=== PATIENT | female | born 1985 | race Two or more races ===

== ENCOUNTER 2024-12-13 00:56 | Emergency (ER) | payer BC, SELFPAY ==
[2024-12-13 01:04] VITALS: BP 114/76
[2024-12-13 01:20] VITALS: BMI 27.5
--- NOTE | 2024-12-13 01:25 | EDRN ---
Pt says she has had a cough for 3.5 weeks and last week had a sore throat. Cough non productive and hacking. Pt saw her doctor yesterday and was given benzonatate for her cough and a steroid. Per pt, she was instructed to use the benzonatate and
if it did not help, start the steroid. Pt has not started the steroid. Pt comes to ED because she says the cough is keeping her awake. Pt denies sob, fever/chills, ill contacts, nausea/vomiting.
[2024-12-13] MEDS: DUONEB 3 ML INH (02:25)
[2024-12-13 03:01] VITALS: BP 103/70
--- NOTE | 2024-12-13 03:45 | ED.GENMED ---
History of Present Illness
General
Chief Complaint: Cold/Flu/URI Symptoms
Source: patient and spouse
Exam Limitations: none
Time Seen by Provider: 12/13/24 01:59
Nursing documentation reviewed up to this point in time: agreed with
History of Present Illness
History of Present Illness:
The patient is a 39-year-old female who presents with a persistent cough, ongoing for the past 3-1/2 weeks, that occurs notably at night when lying down. This cough occasionally causes her to gag and vomit. The patient has a history of similar
symptoms following viral illnesses, although this episode has been more persistent. She denies fever or any history of lung problems such as asthma but does report a sensation of post-nasal drip and potential allergy symptoms. She notes very mild
sore throat first thing in the morning which promptly resolves. She has not observed similar symptoms in her family or recent contacts. She was evaluated by her PCP yesterday, prescribed a Medrol Dosepak which she has not started as yet and
prescribed Tessalon Perles. She did take Tessalon which has not improved her cough. She has had some improvement in cough with Robitussin. She is up-to-date with immunizations including a Tdap received 2021.
Past History
Past History
ED Past Medical History: NIDDM and Hypothyroidism
ED Past Surgical History:
Social History
Tobacco: Non-smoker
Alcohol: None
Drug: None
Personal:
Living: with family
Employment: Employed
Family History
Family History: Other (Noncontributory)
Phy Exam
Physical Exam
Physical Exam:
GENERAL: 39-year-old female appears her stated age, bright and alert, pleasant, appears in no acute distress. Rare brief nonproductive cough is noted. No respiratory distress. is accompanying.
EYE: pupils equal and reactive. anicteric
NECK: Supple, nontender, no meningismus, no significant adenopathy.
ENT: posterior pharynx is without injection nor edema, there is mild pearly postnasal drip, oral mucosa is moist. TM clear b/l, moderately boggy pale blue turbinates.
CARDIAC: Regular rate and rhythm. no murmur.
LUNGS: Clear breath sounds bilaterally, no acute respiratory distress, no wheezes/rales/rhonchi
ABDOMEN: Soft, nondistended, without focal tenderness, normoactive BS.
NEUROLOGICAL: Alert and oriented x3, no focal neuro deficits. Gait is jones and steady.
SKIN: Warm and dry, normal color, skin intact. No rash.
MUSCULOSKELETAL: No C/C/E. peripheral pulses are full and equal b/l. No palpable tenderness.
PSYCH: Normal and appropriate interaction.
Sepsis
Sepsis Screening
Sepsis Assessment: Sepsis Ruled Out
Sepsis Screen
Sepsis Screen: Sepsis Ruled Out
Date: 12/13/24
Time: 07:30
Course
Orders/Labs/Results
Orders:
Orders
12/13/24 02:16
Ipratropium/Albuterol Sulfate [Duoneb] 3 ml INH R NOW STA
CR Chest - 2 Views Urgent
Comment:
Reason For Exam: cough x 3 weeks
Vital Signs
Initial and Last Documented VS:
Initial Vital Signs
Temp Pulse Resp BP Pulse Ox
98.6 F 126 26 114/76 100
12/13/24 01:04 12/13/24 01:04 12/13/24 01:04 12/13/24 01:04 12/13/24 01:04
Last Documented Vital Signs
Temp Pulse Resp BP Pulse Ox
98.6 F 112 16 103/70 98
12/13/24 01:04 12/13/24 03:01 12/13/24 03:01 12/13/24 03:01 12/13/24 03:47
MDM/Problems Addressed
Differential Diagnosis Includes:
The Differential Diagnosis includes, in no particular order and is not limited to:
1. Post-viral cough
2. Allergic rhinitis
3. Gastroesophageal reflux disease (GERD)
4. Asthma
5. Chronic bronchitis
6. Sinusitis
7. Pertussis
8. Pneumonia
9. Bronchiectasis
10. Chronic obstructive pulmonary disease (COPD)
MDM/Problems Addressed:
Dry hacking cough for the past 3-1/2 weeks.
History and exam most consistent with allergic rhinitis, postnasal drip.
Must also consider occult pneumonia thus will check chest x-ray.
She may have an element of reactive airway disease as well.
Will give DuoNeb nebulizer and check chest x-ray.
Patient has a Medrol Dosepak with her and recommend she initiate this. Will take the first days dose of Medrol now.
Pertussis is unlikely. She has had pertussis vaccination within the past 3 years.
*Radiology
Radiology exam reviewed: preliminary read by ED provider (Chest x-ray is unremarkable, clear lung field. Normal heart size.)
*Pulse Oximetry
SaO2: 98
Oxygen Mode of Delivery: Room air
Patient hypoxic: no
*Critical Care Note
Total Time (30-74mins, 75-104mins- exclusive of procedures): Not Applicable
Update Note
Update Note:
03:45
Patient reports moderate but somewhat temporary relief of cough after nebulizer treatment.
Overall remains well in appearance. No cough appreciated during reevaluation.
Lungs are clear to auscultation.
Chest x-ray is unremarkable.
Exam notable for allergic rhinitis, postnasal drip which I suspect is significant part of her subacute cough.
She just began Medrol Dosepak tonight and recommend she continue this.
She can also continue Robitussin as this seems to be more effective for cough suppression then Tessalon.
Recommend supportive measures, elevating head of bed on a couple extra pillows, humidifier or vaporizer at nighttime.
Recommend initiation of an antihistamine as well as steroid nasal spray for allergic rhinitis. Prescription have been sent to her pharmacy.
I have also prescribed albuterol inhaler which she can use 4 times daily as needed for cough.
Prompt follow-up with PCP for recheck.
ED Attending Note
-
Portions of this chart may have been created with voice recognition software.� Occasional wrong word or��sound alike� substitutions may have occurred due to the inherent limitations of voice recognition software.
Discharge Plan
Departure
Patient Disposition: Home (Routine Discharge)
Date of Disposition: 12/13/24
Time of Disposition: 03:45
Patient with high blood pressure during this ER visit?: No
Condition: Good
Discharge Problem:
Acute seasonal allergic rhinitis, Subacute cough
Instructions: Cough in adults - ED (DC), Seasonal allergies - ED (DC)
Prescriptions:
New
fexofenadine [Magali Allergy] 180 mg tablet
180 mg PO DAILY Qty: 30 0RF
fluticasone propionate [Flonase Allergy Relief] 50 mcg/actuation spray,suspension
2 spray intranasal DAILY Qty: 16 0RF
Rx Instructions:
2 sprays each nostril once daily
albuterol sulfate 90 mcg/actuation aerosol powdr breath activated
2 inh inhalation QIDPRN PRN (Reason: cough) Qty: 1 0RF
No Action
benzonatate 100 mg Capsule
100 mg PO TID PRN (Reason: cough)
levothyroxine 50 mcg Tablet
50 mcg PO DAILY
metformin 1,000 mg Tablet Extended Release 24hr
1,000 mg PO DAILY
Referrals:
Yocasta Hamilton PA [Family Provider, General] - Call in 1-3 days for appt
Interventions
Interventions:
*Risk Screen - Suicide Last Done: 12/13/24 01:20
*General Assessment Last Done: 12/13/24 01:20
*Neglect/Abuse Screening Last Done: 12/13/24 01:20
*ED- Fall Risk Assessment Last Done: 12/13/24 01:20
*Nursing Disposition Last Done: 12/13/24 03:53
ED- Pulmonary Assessment Last Done: 12/13/24 01:20
Discharge Date and Time
Discharge Date/Time: 12/13/24 03:53
Print Language: MALDIVIAN
== END 2024-12-13 03:53 | disposition home or self-care (01) ==
LOC: EMR 00:56
PROVIDERS: EMERGENCY PHYSICIAN Emergency Medicine; FAMILY PHYSICIAN Physician Assistant Medical
DX: J30.2 Other seasonal allergic rhinitis (principal); R05.2 Subacute cough; E03.9 Hypothyroidism, unspecified; E11.9 Type 2 diabetes mellitus without complications
CPT/HCPCS: 94640; 99283; 71046